=== PATIENT | male | born 1945 | race Caucasian/White ===

== ENCOUNTER → 2019-06-03 14:29 | Outpatient (BNVA) | payer MEDICARE, OTHER, SELFPAY | PROVIDERS: PCP Nurse Practitioner; Visit Provider Nurse Practitioner | DX: E11.65 Type 2 diabetes mellitus with hyperglycemia (principal) | CPT/HCPCS: 80053; 81003; 83036 ==

== ENCOUNTER → 2019-08-01 11:09 | Outpatient (BNVA) | payer MEDICARE, OTHER, SELFPAY | PROVIDERS: PCP Nurse Practitioner; Visit Provider Nurse Practitioner | DX: E11.65 Type 2 diabetes mellitus with hyperglycemia (principal) | CPT/HCPCS: 80053; 83036 ==

== ENCOUNTER → 2020-01-22 11:44 | Outpatient (BNVA) | payer MEDICARE, OTHER, SELFPAY | PROVIDERS: PCP Nurse Practitioner; Visit Provider Nurse Practitioner | DX: E11.65 Type 2 diabetes mellitus with hyperglycemia (principal); I10 Essential (primary) hypertension; E78.2 Mixed hyperlipidemia | CPT/HCPCS: 80053; 80061; 82043; 83036 ==

== ENCOUNTER → 2020-04-30 11:25 | Outpatient (BNVA) | payer MEDICARE, OTHER, SELFPAY | PROVIDERS: PCP Nurse Practitioner; Visit Provider Nurse Practitioner | DX: E11.65 Type 2 diabetes mellitus with hyperglycemia (principal); I10 Essential (primary) hypertension; E78.2 Mixed hyperlipidemia; M25.50 Pain in unspecified joint | CPT/HCPCS: 80053; 82043; 83036 ==

== ENCOUNTER → 2020-05-05 15:23 | Outpatient (BNVA) | payer MEDICARE, OTHER, SELFPAY | PROVIDERS: PCP Nurse Practitioner; Visit Provider Nurse Practitioner | DX: E11.65 Type 2 diabetes mellitus with hyperglycemia (principal); M13.812 Other specified arthritis, left shoulder; M25.50 Pain in unspecified joint | CPT/HCPCS: 73030; 73080 ==

== ENCOUNTER → 2020-08-03 13:38 | Outpatient (BNVA) | payer MEDICARE, OTHER, SELFPAY | PROVIDERS: PCP Nurse Practitioner; Visit Provider Nurse Practitioner | DX: E11.65 Type 2 diabetes mellitus with hyperglycemia (principal); I10 Essential (primary) hypertension; E78.2 Mixed hyperlipidemia; J30.89 Other allergic rhinitis | CPT/HCPCS: 80053; 80061; 83036; 83721 ==

== ENCOUNTER → 2021-01-25 11:06 | Outpatient (BNVA) | payer MEDICARE, OTHER, SELFPAY | PROVIDERS: PCP Nurse Practitioner; Visit Provider Nurse Practitioner | DX: E11.65 Type 2 diabetes mellitus with hyperglycemia (principal); E78.2 Mixed hyperlipidemia; I10 Essential (primary) hypertension | CPT/HCPCS: 80053; 80061; 81000; 83036 ==

== ENCOUNTER → 2021-05-23 11:14 | Outpatient (BNVA) | payer MEDICARE, OTHER, SELFPAY | PROVIDERS: PCP Nurse Practitioner; Visit Provider Nurse Practitioner | DX: I10 Essential (primary) hypertension (principal); E78.2 Mixed hyperlipidemia; E11.65 Type 2 diabetes mellitus with hyperglycemia; Z86.010 Personal history of colon polyps; M25.50 Pain in unspecified joint; D69.3 Immune thrombocytopenic purpura | CPT/HCPCS: 80053; 81000; 83036 ==

== ENCOUNTER → 2021-08-22 13:49 | Outpatient (BNVA) | payer MEDICARE, OTHER, SELFPAY | PROVIDERS: PCP Nurse Practitioner; Visit Provider Nurse Practitioner | DX: E11.65 Type 2 diabetes mellitus with hyperglycemia (principal); I10 Essential (primary) hypertension; E78.2 Mixed hyperlipidemia | CPT/HCPCS: 80053; 80061; 83036 ==

== ENCOUNTER → 2021-12-06 15:20 | Outpatient (BNVA) | payer MEDICARE, OTHER, SELFPAY | PROVIDERS: PCP Nurse Practitioner; Visit Provider Nurse Practitioner Family | DX: E78.2 Mixed hyperlipidemia (principal); I10 Essential (primary) hypertension; E11.65 Type 2 diabetes mellitus with hyperglycemia | CPT/HCPCS: 80053; 80061; 83036; 84443; 85025 ==

== ENCOUNTER → 2022-03-21 11:09 | Outpatient (BNVA) | payer OTHER, MEDICARE, SELFPAY | PROVIDERS: PCP Nurse Practitioner; Visit Provider Nurse Practitioner | DX: E11.65 Type 2 diabetes mellitus with hyperglycemia (principal) | CPT/HCPCS: 80053; 80061; 81000; 83036 ==

== ENCOUNTER → 2022-07-06 09:35 | Outpatient (BNVA) | payer MEDICARE, OTHER, SELFPAY | PROVIDERS: PCP Nurse Practitioner; Visit Provider Nurse Practitioner | DX: E11.65 Type 2 diabetes mellitus with hyperglycemia (principal) | CPT/HCPCS: 80053; 81000; 83036 ==

== ENCOUNTER → 2022-10-12 13:57 | Outpatient (BNVA) | payer MEDICARE, OTHER, SELFPAY | PROVIDERS: Visit Provider Nurse Practitioner | DX: E11.65 Type 2 diabetes mellitus with hyperglycemia (principal); R60.0 Localized edema | CPT/HCPCS: 80053; 80061; 81000; 82043; 83036; 85379 ==

== ENCOUNTER 2022-10-16 06:00 | Outpatient (RCR) | payer MEDICARE, OTHER, SELFPAY | END 2022-11-13 23:59 | disposition home or self-care (01) | LOC: TPT 06:00 | PROVIDERS: PCP Nurse Practitioner; Visit Provider Internal Medicine | DX: M15.9 Polyosteoarthritis, unspecified (principal) | CPT/HCPCS: 97110; 97162 ==

== ENCOUNTER 2022-10-20 07:22 | Outpatient (CLI) | payer MEDICARE, OTHER, SELFPAY ==
--- NOTE | 2022-10-20 08:00 | USCV_ITS ---
Cleveland Mijares Age: 77 Gender: M : 1945 Exam Date: 10/20/2022 07:46 Ordering Phys: Franklyn Frederick Technologist: AMMY [place] [facility] [place]: [place] HISTORY: Lower extremity edema. PROCEDURES: Venous duplex imaging was performed in only the right lower extremity. The following venous structures were evaluated: common femoral vein, profunda vein, proximal portion of the greater saphenous vein, superficial femoral vein, and the popliteal vein. In addition, the posterior tibial and peroneal trunk were evaluated. Serial compression, augmentation maneuvers, and spectral Doppler flow evaluation were performed. FINDINGS: Normal 2-D Doppler and augmentation and compressibility throughout the lower extremity venous structures. Additional imaging through the proximal calf veins also reveals no thrombus. Limited evaluation of the greater saphenous vein is patent with no thrombus. CONCLUSIONS No DVT right lower extremity. Dr. Tory Castillo DO (Electronically Signed) Final Date: 20 October 2022 08:26 S
== END 2022-10-20 07:23 | disposition home or self-care (01) ==
PROVIDERS: PCP Nurse Practitioner; Visit Provider Nurse Practitioner
DX: R60.0 Localized edema (principal)
CPT/HCPCS: 93971

== ENCOUNTER 2022-11-14 01:00 | Outpatient (RCR) | payer MEDICARE, OTHER, SELFPAY | END 2022-12-14 23:59 | disposition home or self-care (01) | LOC: TPT 01:00 | PROVIDERS: PCP Nurse Practitioner; Visit Provider Internal Medicine | DX: M15.9 Polyosteoarthritis, unspecified (principal) | CPT/HCPCS: 97110 ==

== ENCOUNTER 2022-12-15 06:00 | Outpatient (RCR) | payer MEDICARE, OTHER, SELFPAY | END 2023-01-13 23:59 | disposition home or self-care (01) | LOC: TPT 06:00 | PROVIDERS: PCP Nurse Practitioner; Visit Provider Internal Medicine | DX: M15.9 Polyosteoarthritis, unspecified (principal) | CPT/HCPCS: 97110; 97164 ==

== ENCOUNTER → 2023-01-04 10:46 | Outpatient (BNVA) | payer MEDICARE, OTHER, SELFPAY | PROVIDERS: PCP Nurse Practitioner; Visit Provider Nurse Practitioner | DX: I10 Essential (primary) hypertension (principal); E78.2 Mixed hyperlipidemia; E11.65 Type 2 diabetes mellitus with hyperglycemia; K21.9 Gastro-esophageal reflux disease without esophagitis | CPT/HCPCS: 80053; 81000; 83036 ==

== ENCOUNTER 2023-01-14 06:00 | Outpatient (RCR) | payer MEDICARE, OTHER, SELFPAY | END 2023-02-07 23:59 | disposition home or self-care (01) | LOC: TPT 06:00 | PROVIDERS: PCP Nurse Practitioner; Visit Provider Internal Medicine | DX: M15.9 Polyosteoarthritis, unspecified (principal) | CPT/HCPCS: 97110 ==

== ENCOUNTER 2023-02-27 06:00 | Outpatient (RCR) | payer MEDICARE, OTHER, SELFPAY | END 2023-03-15 23:59 | disposition home or self-care (01) | LOC: TPT 06:00 | PROVIDERS: PCP Nurse Practitioner; Visit Provider Nurse Practitioner Adult Health | DX: R26.89 Other abnormalities of gait and mobility (principal) | CPT/HCPCS: 97110; 97162 ==

== ENCOUNTER 2023-03-16 06:00 | Outpatient (RCR) | payer MEDICARE, OTHER, SELFPAY | END 2023-04-15 23:59 | disposition home or self-care (01) | LOC: TPT 06:00 | PROVIDERS: PCP Nurse Practitioner; Visit Provider Nurse Practitioner Adult Health | DX: Z47.1 Aftercare following joint replacement surgery (principal); Z96.641 Presence of right artificial hip joint; R26.89 Other abnormalities of gait and mobility | CPT/HCPCS: 97110 ==

== ENCOUNTER → 2023-03-29 11:08 | Outpatient (BNVA) | payer MEDICARE, OTHER, SELFPAY | PROVIDERS: PCP Nurse Practitioner; Visit Provider Nurse Practitioner | DX: E11.9 Type 2 diabetes mellitus without complications (principal); I10 Essential (primary) hypertension; E78.2 Mixed hyperlipidemia; E11.65 Type 2 diabetes mellitus with hyperglycemia; K21.9 Gastro-esophageal reflux disease without esophagitis | CPT/HCPCS: 80053; 80061; 81000; 82607; 83036 ==

== ENCOUNTER 2023-04-16 06:00 | Outpatient (RCR) | payer MEDICARE, OTHER, SELFPAY | END 2023-05-16 23:59 | disposition home or self-care (01) | LOC: TPT 06:00 | PROVIDERS: PCP Nurse Practitioner; Visit Provider Nurse Practitioner Adult Health | DX: R26.89 Other abnormalities of gait and mobility (principal) | CPT/HCPCS: 97110 ==

== ENCOUNTER 2023-05-17 06:00 | Outpatient (RCR) | payer MEDICARE, OTHER, SELFPAY | END 2023-06-14 23:59 | disposition home or self-care (01) | LOC: TPT 06:00 | PROVIDERS: PCP Nurse Practitioner; Visit Provider Nurse Practitioner Adult Health | DX: R26.89 Other abnormalities of gait and mobility (principal) | CPT/HCPCS: 97110 ==

== ENCOUNTER 2023-06-15 06:00 | Outpatient (RCR) | payer MEDICARE, OTHER, SELFPAY | END 2023-07-15 23:59 | disposition home or self-care (01) | LOC: TPT 06:00 | PROVIDERS: PCP Nurse Practitioner; Visit Provider Nurse Practitioner Adult Health | DX: R26.89 Other abnormalities of gait and mobility (principal) | CPT/HCPCS: 97110 ==

== ENCOUNTER → 2023-06-18 11:59 | Outpatient (BNVA) | payer MEDICARE, OTHER, SELFPAY | PROVIDERS: PCP Nurse Practitioner; Visit Provider Nurse Practitioner | DX: E11.9 Type 2 diabetes mellitus without complications (principal) | CPT/HCPCS: 80053; 81000; 83036 ==

== ENCOUNTER 2023-07-16 06:00 | Outpatient (RCR) | payer MEDICARE, OTHER, SELFPAY | END 2023-07-19 23:59 | disposition home or self-care (01) | LOC: TPT 06:00 | PROVIDERS: PCP Nurse Practitioner; Visit Provider Nurse Practitioner Adult Health | DX: M76.31 Iliotibial band syndrome, right leg (principal); M25.579 Pain in unspecified ankle and joints of unspecified foot | CPT/HCPCS: 97110; 97162 ==

== ENCOUNTER 2023-07-30 06:00 | Outpatient (RCR) | payer MEDICARE, OTHER, SELFPAY | END 2023-08-14 23:59 | disposition home or self-care (01) | LOC: TPT 06:00 | PROVIDERS: Visit Provider Physician Assistant Surgical | DX: M76.31 Iliotibial band syndrome, right leg (principal); Z96.651 Presence of right artificial knee joint | CPT/HCPCS: 97110; 97140 ==

== ENCOUNTER 2023-08-15 06:00 | Outpatient (RCR) | payer MEDICARE, OTHER, SELFPAY | END 2023-09-14 23:59 | disposition home or self-care (01) | LOC: TPT 06:00 | PROVIDERS: Visit Provider Physician Assistant Surgical | DX: M76.31 Iliotibial band syndrome, right leg (principal) | CPT/HCPCS: 97110; 97140 ==

== ENCOUNTER → 2023-09-03 10:15 | Outpatient (BNVA) | payer MEDICARE, OTHER, SELFPAY | PROVIDERS: PCP Nurse Practitioner; Visit Provider Nurse Practitioner | DX: I10 Essential (primary) hypertension (principal); E55.9 Vitamin D deficiency, unspecified; E78.2 Mixed hyperlipidemia; F41.9 Anxiety disorder, unspecified | CPT/HCPCS: 80053; 80061; 82306; 82607; 84443; 85025 ==

== ENCOUNTER 2023-09-15 06:00 | Outpatient (RCR) | payer MEDICARE, OTHER, SELFPAY | END 2023-10-14 23:59 | disposition home or self-care (01) | LOC: TPT 06:00 | PROVIDERS: PCP Nurse Practitioner; Visit Provider Physician Assistant Surgical | DX: M76.31 Iliotibial band syndrome, right leg (principal) | CPT/HCPCS: 97110; 97140 ==

== ENCOUNTER 2023-10-02 09:41 | Outpatient (CLI) | payer MEDICARE, OTHER, SELFPAY ==
--- NOTE | 2023-10-02 09:44 | XRR_ITS ---
PROCEDURE INFORMATION: Exam: XR Lumbosacral Spine Exam date and time: 10/02/2023 9:57 AM Age: 78 years old Clinical indication: Low back pain; Additional info: M54.50 - low back pain, unspecified TECHNIQUE: Imaging protocol: Radiologic exam of the lumbosacral spine. Views: 2 or 3 views. COMPARISON: No relevant prior studies available. FINDINGS: Bones/joints: Mild scoliosis. 7 mm left lateral subluxation of L2 on L3. 5 mm left lateral subluxation of L3 on L4. 5 mm right lateral subluxation of L4 on L5. 2 mm anterior subluxation of L1 on L2. 4 mm anterior subluxation of L5 on S1. Severe degenerative disc disease from the L2 level to the S1 level. Mild L1-L2 degenerative disc disease. Bilateral L4-L5 and L5-S1 facet osteoarthritis. A right total hip arthroplasty is partially in the field of view, and projects in satisfactory position. Otherwise, unremarkable. Soft tissues: Otherwise, unremarkable soft tissues. Vasculature: Large amount of arterial calcification. XR/XR lumbar spine 2-3V* [id number] IMPRESSION: 1. No acute findings. 2. Additional details as above.
== END 2023-10-02 09:42 | disposition home or self-care (01) ==
LOC: RAD 09:42
PROVIDERS: PCP Nurse Practitioner; Visit Provider Nurse Practitioner
DX: M41.9 Scoliosis, unspecified (principal); S33.110A Subluxation of L1/L2 lumbar vertebra, initial encounter; S33.120A Subluxation of L2/L3 lumbar vertebra, initial encounter; S33.130A Subluxation of L3/L4 lumbar vertebra, initial encounter; S33.140A Subluxation of L4/L5 lumbar vertebra, initial encounter; M47.896 Other spondylosis, lumbar region; M47.897 Other spondylosis, lumbosacral region; Z96.641 Presence of right artificial hip joint; M79.604 Pain in right leg; X58.XXXA Exposure to other specified factors, initial encounter
CPT/HCPCS: 72100

== ENCOUNTER 2023-10-15 06:00 | Outpatient (RCR) | payer MEDICARE, OTHER, SELFPAY | END 2023-11-14 23:59 | disposition home or self-care (01) | LOC: TPT 06:00 | PROVIDERS: PCP Nurse Practitioner; Visit Provider Physician Assistant Surgical | DX: M76.31 Iliotibial band syndrome, right leg (principal); Z96.651 Presence of right artificial knee joint | CPT/HCPCS: 97110 ==

== ENCOUNTER 2023-10-24 12:28 | Outpatient (CLI) | payer MEDICARE, OTHER, SELFPAY ==
--- NOTE | 2023-10-24 12:37 | MR_ITS ---
WS: [id number] MRI LUMBAR SPINE NONCONTRAST TECHNIQUE: Sagittal T1, T2 and STIR imaging. Axial T1 and T2 imaging. CLINICAL INFORMATION: LOW BACK PAIN COMPARISON: None. FINDINGS: Mild lumbar curve. Moderate spondylitic changes lumbar spine. No acute compression. Mild disc bulging throughout the lumbar spine. L1-L2: Mild lumbar curve. Narrowing of the subarticular recess bilaterally. Moderate facet arthropath y. Small bilateral foraminal protrusions with moderate LEFT and mild RIGHT foraminal narrowing. L2-L3: Mild disc bulging. Moderate central canal stenosis. Moderate facet arthropathy and ligamentum flavum hypertrophy. Mild RIGHT foraminal narrowing. L3-L4: Mild disc bulging with a shallow central protrusion. Severe central canal stenosis. Moderate f acet arthropathy ligamentum flavum hypertrophy. Impingement on the subarticular recess. Mild RIGHT gr eater than LEFT foraminal narrowing. L4-L5: Mild disc bulging with osteophytic ridging. Impingement on the LEFT subarticular recess. Mild central canal stenosis. Moderate facet arthropathy. Mild LEFT foraminal narrowing. L5-S1: Mild disc bulge with osteophytic ridging. Moderate LEFT foraminal narrowing. Mild RIGHT forami nal narrowing. Spinal canal is patent. Moderate facet arthropathy. Visualized pelvic bony structures: Normal. Paravertebral soft tissues: Normal. 2.1 cm RIGHT renal cyst. MR/MR lumbar spine wo con* [id number] IMPRESSION: 1. Moderate central canal stenosis L2-3 and severe central canal stenosis L4-5 due to disc bulging with facet arthropathy and ligamentum flavum hypertrophy. Prominent epidural fat contributes to stenosis. 2. Mild narrowing of the thecal sac at L4-5 with slight impingement on the LEF T subarticular recess and traversing LEFT L5 nerve root. 3. Moderate LEFT L5-S1 foraminal narrowing.
== END 2023-10-24 12:29 | disposition home or self-care (01) ==
LOC: RAD 12:28
PROVIDERS: PCP Nurse Practitioner; Visit Provider Radiology Radiation Oncology
DX: M48.061 Spinal stenosis, lumbar region without neurogenic claudication (principal); M51.36 Other intervertebral disc degeneration, lumbar region; M47.896 Other spondylosis, lumbar region; M99.64 Osseous and subluxation stenosis of intervertebral foramina of sacral region
CPT/HCPCS: 72148

== ENCOUNTER → 2023-11-19 10:19 | Outpatient (BNVA) | payer MEDICARE, OTHER, SELFPAY | PROVIDERS: PCP Nurse Practitioner; Visit Provider Nurse Practitioner | DX: E11.9 Type 2 diabetes mellitus without complications (principal) | CPT/HCPCS: 80053; 83036; 84443 ==

== ENCOUNTER 2024-01-25 08:28 | Outpatient (CLI) | payer MEDICARE, OTHER, SELFPAY ==
--- NOTE | 2024-01-25 08:32 | CTR_ITS ---
PROCEDURE INFORMATION: Exam: CT Lumbar Spine Without Contrast Exam date and time: 01/25/2024 9:00 AM Age: 78 years old Clinical indication: Low back pain TECHNIQUE: Imaging protocol: Computed tomography of the lumbar spine without contrast. Radiation optimization: All CT scans at this facility use at least one of these dose optimization techniques: automated exposure control; mA and/or kV adjustment per patient size (includes targeted exams where dose is matched to clinical indication); or iterative reconstruction. COMPARISON: MR lumbar spine wo con* [id number] 10/24/2023 2:17 PM RADIATION DOSE METRICS: Total DLP (mGy-cm): 773.26 FINDINGS: Bones/joints: No acute osseous lesions. No evidence of a vertebral compression fracture deformity. There is stable alignment of the lumbosacral spine. There is stable moderate to severe degenerative disc disease at L2-L3, L3-L4, L4-L5, and L5-S1. Stable multilevel central canal stenoses and stable multilevel bilateral neural foraminal stenoses when compared to the recent MRI. The most severe neural foraminal stenosis is again noted on the left side at L5-S1. The central canal stenoses at L2-L3 and L4-L5 have not significantly changed when compared to the prior study. Soft tissues: Unremarkable. CT/CT lumbar spine wo con* [id number] IMPRESSION: Stable multilevel chronic degenerative disc disease of the lumbar spine without major interval change when compared to the recent MRI of the lumbar spine. No acute osseous lesions identified.
== END 2024-01-25 08:29 | disposition home or self-care (01) ==
LOC: RAD 08:30
PROVIDERS: PCP Nurse Practitioner; Visit Provider Neurological Surgery
DX: M47.816 Spondylosis without myelopathy or radiculopathy, lumbar region (principal); M51.369 Other intervertebral disc degeneration, lumbar region without mention of lumbar back pain or lower extremity pain; M99.63 Osseous and subluxation stenosis of intervertebral foramina of lumbar region
CPT/HCPCS: 72131

== ENCOUNTER → 2024-02-06 14:44 | Outpatient (BNVA) | payer MEDICARE, OTHER, SELFPAY | PROVIDERS: PCP Nurse Practitioner; Visit Provider Nurse Practitioner | DX: D69.3 Immune thrombocytopenic purpura (principal); E11.9 Type 2 diabetes mellitus without complications | CPT/HCPCS: 80053; 80061; 82607; 83036; 85025 ==

== ENCOUNTER → 2024-05-12 11:36 | Outpatient (BNVA) | payer MEDICARE, OTHER, SELFPAY | PROVIDERS: PCP Nurse Practitioner; Visit Provider Nurse Practitioner | DX: E11.65 Type 2 diabetes mellitus with hyperglycemia (principal); E11.9 Type 2 diabetes mellitus without complications | CPT/HCPCS: 80048; 81000; 83036 ==

== ENCOUNTER 2024-05-23 10:29 | Outpatient (CLI) | payer MEDICARE, OTHER, SELFPAY ==
--- NOTE | 2024-05-23 11:15 | US_ITS ---
WS: [id number] RENAL ULTRASOUND HISTORY: N39.41 - Urge incontinence COMPARISON: 10/10/2006 TECHNIQUE: 2-D and color Doppler imaging of the kidney submitted. Right kidney: 11.0 cm x 5.6 cm x 6.4 cm. Cortex: 1.4 cm Normal size kidney with mild increased echogenicity. Cortical cyst superior pole measures 2.2 x 2.1 x 1.9 cm. No solid mass or obstruction. Left kidney: 10.2 cm x 4.8 cm x 6.5 cm. Cortex: 1.0 cm Normal size kidney with no hydronephrosis. Mild increased echogenicity. Cortical cyst superior pole measures 1.7 x 1.7 x 1.6 cm. Aorta: Mild atherosclerosis with no aneurysm. Urinary Bladder: Minimally distended. US/US renal BI* [id number] IMPRESSION: 1. Mild chronic medical renal disease with no atrophy. 2. Bilateral simple renal cyst. 3. Minimally distended urinary bladder.
== END 2024-05-23 10:30 | disposition home or self-care (01) ==
PROVIDERS: PCP Nurse Practitioner; Visit Provider Nurse Practitioner
DX: N39.41 Urge incontinence (principal); N18.9 Chronic kidney disease, unspecified; N28.1 Cyst of kidney, acquired; R93.421 Abnormal radiologic findings on diagnostic imaging of right kidney; R93.422 Abnormal radiologic findings on diagnostic imaging of left kidney; I70.0 Atherosclerosis of aorta
CPT/HCPCS: 76770

== ENCOUNTER → 2024-08-07 11:37 | Outpatient (BNVA) | payer MEDICARE, OTHER, SELFPAY | PROVIDERS: PCP Nurse Practitioner; Visit Provider Nurse Practitioner | DX: I10 Essential (primary) hypertension (principal); E11.65 Type 2 diabetes mellitus with hyperglycemia; M54.50 Low back pain, unspecified; M79.604 Pain in right leg; E03.8 Other specified hypothyroidism; F41.9 Anxiety disorder, unspecified; E78.2 Mixed hyperlipidemia; D69.3 Immune thrombocytopenic purpura | CPT/HCPCS: 80053; 80061; 81000; 83036; 84443 ==

== ENCOUNTER 2024-08-14 05:00 | Outpatient (RCR) | payer MEDICARE, OTHER, SELFPAY | END 2024-09-13 23:59 | disposition home or self-care (01) | LOC: TPT 05:00 | PROVIDERS: Visit Provider Neurological Surgery | DX: M54.16 Radiculopathy, lumbar region (principal); M48.061 Spinal stenosis, lumbar region without neurogenic claudication; M47.816 Spondylosis without myelopathy or radiculopathy, lumbar region; Z98.1 Arthrodesis status | CPT/HCPCS: 97110; 97116; 97161 ==

== ENCOUNTER 2024-09-14 05:00 | Outpatient (RCR) | payer MEDICARE, OTHER, SELFPAY | END 2024-10-13 23:59 | disposition home or self-care (01) | LOC: TPT 05:00 | PROVIDERS: PCP Nurse Practitioner; Visit Provider Neurological Surgery | DX: M54.16 Radiculopathy, lumbar region (principal); M48.061 Spinal stenosis, lumbar region without neurogenic claudication; M47.816 Spondylosis without myelopathy or radiculopathy, lumbar region; Z98.1 Arthrodesis status | CPT/HCPCS: 97110; 97116 ==

== ENCOUNTER 2024-10-14 06:30 | Outpatient (RCR) | payer MEDICARE, OTHER, SELFPAY | END 2024-11-13 23:59 | disposition home or self-care (01) | LOC: TPT 06:30 | PROVIDERS: PCP Nurse Practitioner; Visit Provider Neurological Surgery | DX: M54.16 Radiculopathy, lumbar region (principal); M48.061 Spinal stenosis, lumbar region without neurogenic claudication | CPT/HCPCS: 97110; 97116 ==

== ENCOUNTER 2024-11-14 05:00 | Outpatient (RCR) | payer MEDICARE, OTHER, SELFPAY | END 2024-12-14 23:59 | disposition home or self-care (01) | LOC: TPT 05:00 | PROVIDERS: PCP Nurse Practitioner; Visit Provider Nurse Practitioner | DX: R26.89 Other abnormalities of gait and mobility (principal) | CPT/HCPCS: 97161 ==

== ENCOUNTER 2024-11-14 06:39 | Outpatient (RCR) | payer MEDICARE, OTHER, SELFPAY | END 2024-11-24 09:45 | disposition home or self-care (01) | LOC: TPT 06:39 | PROVIDERS: PCP Nurse Practitioner; Visit Provider Neurological Surgery | DX: M54.16 Radiculopathy, lumbar region (principal); M48.061 Spinal stenosis, lumbar region without neurogenic claudication | CPT/HCPCS: 97110; 97116 ==

== ENCOUNTER 2024-12-01 13:20 | Outpatient (CLI) | payer MEDICARE, OTHER, SELFPAY ==
[2024-12-01] MEDS: iohexol 350 mg/mL 500 mL Btl (per mL) PO (14:06)
[2024-12-01 15:00] LABS: Blood Urea Nitrogen 22 mg/dL (8-23)
[2024-12-01] MEDS: iohexol 350 mg/mL 500 mL Btl (per mL) IV (15:10)
--- NOTE | 2024-12-01 16:00 | CTR_ITS ---
PROCEDURE INFORMATION: Exam: CT Abdomen And Pelvis With Contrast Exam date and time: 12/01/2024 3:07 PM Age: 79 years old Clinical indication: Abdominal pain; Localized; Left lower quadrant (llq); Prior surgery; Surgery date: 6+ months; Surgery type: Back, right hip; Left lower quadrant pain 1 month ago, none now; Additional info: R10.32 - left lower quadrant pain TECHNIQUE: Imaging protocol: Computed tomography of the abdomen and pelvis with contrast. Radiation optimization: All CT scans at this facility use at least one of these dose optimization techniques: automated exposure control; mA and/or kV adjustment per patient size (includes targeted exams where dose is matched to clinical indication); or iterative reconstruction. Contrast material: OMNI 350; Contrast volume: 100 ml; Contrast route: INTRAVENOUS (IV); COMPARISON: 1. CR XR lumbar spine 2-3V* [id number] 10/02/2023 9:57 AM 2. US renal BI* [id number] 05/23/2024 10:45 AM RADIATION DOSE METRICS: Total DLP (mGy-cm): 926.29 FINDINGS: Lungs: 4 mm subpleural nodule right lower lobe. 4 mm subsolid nodule medially at the left base. Coronary arteries: Mild coronary artery calcifications are present. Mediastinal space: Small right hilar and subcarinal calcifications are present. Liver: 6 mm hypodensity anteriorly in the right lobe, too small to characterize. No other evidence for liver mass. Gallbladder and biliary ducts: A small calcified stone is present in the gallbladder lumen. No evidence for cholecystitis. No biliary dilatation. Pancreas: The pancreas is normal. No mass. Spleen: The spleen is normal. Adrenal glands: The adrenal glands are normal. Kidneys and ureters: Bilateral renal cysts are again noted. No hydronephrosis. Stomach and bowel: Colonic diverticulosis without evidence of diverticulitis. No evidence of bowel obstruction. No pericolonic inflammatory stranding. Appendix: Normal appendix. Intraperitoneal space: No significant peritoneal free fluid. No free peritoneal air. Vasculature: Moderate mural calcification throughout the abdominal aorta. No aneurysm. Lymph nodes: No lymph node enlargement. Urinary bladder: No focal wall thickening of the urinary bladder. Reproductive: Visualized portions of the male reproductive tract are unremarkable, though routine CT is limited in this regard. Bones/joints: There has been previous lumbar laminectomy and right hip replacement. Severe degenerative disc disease in the lumbar spine. Moderate to severe degenerative changes in the left hip. No suspicious osseous lesions. Soft tissues: Mild fat-containing inguinal and umbilical hernias. CT/CT abdomen pelvis w con* [id number] IMPRESSION: 1. No acute findings. 2. Cholecystolithiasis without evidence for cholecystitis.
== END 2024-12-01 13:21 | disposition home or self-care (01) ==
LOC: RAD 13:22
PROVIDERS: PCP Nurse Practitioner; Visit Provider Nurse Practitioner
DX: R10.32 Left lower quadrant pain (principal); R91.1 Solitary pulmonary nodule; I25.10 Atherosclerotic heart disease of native coronary artery without angina pectoris; K80.20 Calculus of gallbladder without cholecystitis without obstruction; Q61.02 Congenital multiple renal cysts; K57.90 Diverticulosis of intestine, part unspecified, without perforation or abscess without bleeding; M51.369 Other intervertebral disc degeneration, lumbar region without mention of lumbar back pain or lower extremity pain; K40.90 Unilateral inguinal hernia, without obstruction or gangrene, not specified as recurrent; K42.9 Umbilical hernia without obstruction or gangrene
CPT/HCPCS: 74177; 82565; 84520

== ENCOUNTER 2024-12-15 06:30 | Outpatient (RCR) | payer MEDICARE, OTHER, SELFPAY | END 2025-01-13 23:59 | disposition home or self-care (01) | LOC: TPT 06:30 | PROVIDERS: PCP Nurse Practitioner; Visit Provider Nurse Practitioner | DX: R26.89 Other abnormalities of gait and mobility (principal) | CPT/HCPCS: 97110; 97116; 97530 ==

== ENCOUNTER → 2025-01-14 15:00 | Outpatient (BNVA) | payer MEDICARE, OTHER, SELFPAY | PROVIDERS: PCP Nurse Practitioner; Visit Provider Nurse Practitioner | DX: K57.92 Diverticulitis of intestine, part unspecified, without perforation or abscess without bleeding (principal); E11.65 Type 2 diabetes mellitus with hyperglycemia | CPT/HCPCS: 80048; 83036; 85025 ==

== ENCOUNTER → 2025-02-05 11:25 | Outpatient (BNVA) | payer MEDICARE, OTHER, SELFPAY | PROVIDERS: PCP Nurse Practitioner; Visit Provider Nurse Practitioner | DX: E11.65 Type 2 diabetes mellitus with hyperglycemia (principal) | CPT/HCPCS: 81000; 82043 ==

== ENCOUNTER 2025-02-12 11:48 | Outpatient (RCR) | payer MEDICARE, OTHER, SELFPAY | END 2025-02-13 23:59 | disposition home or self-care (01) | LOC: TPT 11:48 | PROVIDERS: PCP Nurse Practitioner; Visit Provider Nurse Practitioner | DX: R26.89 Other abnormalities of gait and mobility (principal) | CPT/HCPCS: 97110; 97116 ==

== ENCOUNTER → 2025-02-26 09:06 | Outpatient (BNVA) | payer MEDICARE, OTHER, SELFPAY | PROVIDERS: PCP Nurse Practitioner; Visit Provider Nurse Practitioner | DX: K57.92 Diverticulitis of intestine, part unspecified, without perforation or abscess without bleeding (principal); K59.00 Constipation, unspecified | CPT/HCPCS: 74018 ==

== ENCOUNTER 2025-03-13 11:00 | Outpatient (RCR) | payer MEDICARE, OTHER, SELFPAY | END 2025-03-15 23:59 | disposition home or self-care (01) | LOC: TPT 11:00 | PROVIDERS: PCP Nurse Practitioner; Visit Provider Nurse Practitioner | DX: R26.89 Other abnormalities of gait and mobility (principal) | CPT/HCPCS: 97110; 97116 ==

== ENCOUNTER 2025-04-13 09:57 | Outpatient (RCR) | payer MEDICARE, OTHER, SELFPAY | END 2025-04-15 23:59 | disposition home or self-care (01) | LOC: TPT 09:57 | PROVIDERS: PCP Nurse Practitioner; Visit Provider Nurse Practitioner | DX: R26.89 Other abnormalities of gait and mobility (principal) | CPT/HCPCS: 97110; 97116 ==